=== PATIENT | female | born 1985 | race Caucasian/White ===

== ENCOUNTER 2017-08-16 01:41 | Emergency (ER) | payer MEDICAID ==
--- NOTE | 2017-08-16 02:31 | ER Document Report ---
ED General - General TRAVEL OUTSIDE OF THE [place].S. IN LAST 30 DAYS: No <TRAVIS PERSAUD - Last Filed: 08/16/17 05:19> <MARJORIE ZAMBRANO - Last Filed: 08/16/17 09:09> <MOE AC - Last Filed: 08/16/17 10:30> - General Chief Complaint: Possible Overdose Stated Complaint: ANXIETY Time Seen by Provider: 08/16/17 02:00 Notes: Patient is a 31-year-old female who was sent here by the police because she threatened suicide and then took a bunch gabapentin. She says she is unsure what the dose was, but took approximately 20-30 tablets. He says he only other thing she took with alcohol. She denies taking illegal drugs. She has been depressed because she says her 's been cheating on her. She is a history of depression and used to be on medications for. She said she was was diagnosed as bipolar. She will longer takes medications. She is very tearful on exam and says that she just cannot control her sadness at times and gets like this. (TRAVIS PERSAUD) - Related Data Allergies/Adverse Reactions: morphine [Morphine] Adverse Reaction (Intermediate, Verified 11/14/13 20:48) Hallucinations Past Medical History - Social History Smoking Status: Unknown if Ever Smoked Frequency of alcohol use: Occasional Drug Abuse: None Family History: Reviewed & Not Pertinent Patient has suicidal ideation: Yes Patient has homicidal ideation: No Pulmonary Medical History: Reports: Hx Bronchitis, Hx Pneumonia Denies: Hx Asthma Renal/ Medical History: Denies: Hx Peritoneal Dialysis Past Surgical History: Reports: Hx Section - x2 - Immunizations Hx Diphtheria, Pertussis, Tetanus Vaccination: Yes <TRAVIS PERSAUD - Last Filed: 08/16/17 05:19> Review of Systems <TRAVIS PERSAUD - Last Filed: 08/16/17 05:19> <MARJORIE ZAMBRANO - Last Filed: 08/16/17 09:09> <MOE AC - Last Filed: 08/16/17 10:30> - Review of Systems Notes: My Normal Review Basic REVIEW OF SYSTEMS: CONSTITUTIONAL : Denies fever, chills, or sweats. Denies recent illness. RESPIRATORY: Denies cough, cold, or chest congestion. Denies shortness of breath, difficulty breathing, or wheezing. GASTROINTESTINAL: Denies abdominal pain. Denies nausea, vomiting, or diarrhea. Denies constipation. Last BM: GENITOURINARY: Denies difficulty urinating, painful urination, burning, frequency, or blood in urine. FEMALE GENITOURINARY: Denies vaginal bleeding, abnormal or irregular periods. LMP: MUSCULOSKELETAL: Denies neck or back pain or joint pain or swelling. SKIN: Denies rash or skin lesions. NEUROLOGICAL: Denies altered mental status or loss of consciousness. Denies headache. Denies weakness or paralysis or loss of use of either side. Denies problems with gait or speech. Denies sensory or motor loss. PSYCHIATRIC: Suicide attempt. ALL OTHER SYSTEMS REVIEWED AND NEGATIVE. (TRAVIS PERSAUD) Physical Exam <TRAVIS PERSAUD - Last Filed: 08/16/17 05:19> <MARJORIE ZAMBRANO - Last Filed: 08/16/17 09:09> <MOE AC - Last Filed: 08/16/17 10:30> - Vital signs Vitals: Resp 15 08/16/17 01:52 - Notes Notes: General Appearance: Well nourished, alert, cooperative, no acute distress, no obvious discomfort. Vitals: reviewed, See vital signs table. Head: no swelling or tenderness to the head Eyes: PERRL, EOMI, Conjuctiva clear Mouth: No decreasd moisture Neck: Supple, no neck tenderness, No thyromegaly Lungs: No wheezing, No rales, No rhonci, No accessory muscle use, good air exchange bilaterally. Heart: Normal rate, Regular rythm, No murmur, no rub Abdomen: Normal BS, soft, No rigidity, No abdominal tenderness, No guarding, no rebound, no abdominal masses, no organomegaly Extremities: strength 5/5 in all extremities, good pulses in all extremities, no swelling or tenderness in the extremities, no edema. Skin: warm, dry, appropriate color, no rash Neuro: speech clear, oriented x 3, normal affect, responds appropriately to questions. Anibal: Very tearful on exam. At times appears okay and then suddenly will become very tearful and start crying and very emotionally upset and hard to console. (TRAVIS PERSAUD) Course - Laboratory Result Diagrams: 08/16/17 01:45 08/16/17 01:45 <TRAVIS PERSAUD - Last Filed: 08/16/17 05:19> - Laboratory Result Diagrams: 08/16/17 01:45 08/16/17 01:45 <MARJORIE ZAMBRANO - Last Filed: 08/16/17 09:09> - Laboratory Result Diagrams: 08/16/17 01:45 08/16/17 01:45 <MOE AC - Last Filed: 08/16/17 10:30> - Re-evaluation Re-evalutation: 08/16/17 05:21 At 8 AM patient will be medically stable for psychiatric evaluation for her depression and suicide attempt as long as she continues to be easily arousable and continues to have normal vital signs. Patient's pulse oximetry has remained normal to this point. Heart rate has remained normal. Dictation of this chart was performed using voice recognition software; therefore, there may be some unintended grammatical errors. (TRAVIS PERSAUD) - Vital Signs Vital signs: Temp Pulse Resp BP Pulse Ox 98.7 F 16 112/86 H 98 08/16/17 01:54 08/16/17 09:01 08/16/17 09:01 08/16/17 09:01 - Laboratory Laboratory results interpreted by me: 08/16/17 08/16/17 01:45 07:09 Sodium 149.9 H Chloride 111 H Urine Protein 100 H Urine Blood LARGE H Urine Urobilinogen 2.0 H Salicylates < 1.0 L Acetaminophen < 10 L - EKG Interpretation by Me Additional EKG results interpreted by me: 08/16/17 02:30 EKG is reviewed and interpreted by me. EKG shows sinus rhythm with rate of [address] segment elevation or depression. No ischemic T-wave inversions. TX interval, QRS duration, QTc intervals are within normal range. No old EKG available for comparison. (TRAVIS PERSAUD) Discharge <TRAVIS PERSAUD - Last Filed: 08/16/17 05:19> <MARJORIE ZAMBRANO - Last Filed: 08/16/17 09:09> <MOE AC - Last Filed: 08/16/17 10:30> - Discharge Clinical Impression: Depression Condition: Good Disposition: HOME, SELF-CARE Additional Instructions: You were seen at the Emergency Department and consulted by the Behavioral Health Team for depression and a suicide attempt by overdose, and have now been determined appropriate for discharge. You are being referred to [facility] for ongoing care and treatment of your depression and current situational factors which led to your suicide attempt. A "warm hand-off" at discharge occurred so that an immediate connection to services was made. In addition, you were provided pharmacy discount cards to assist with obtaining medications you are prescribed. Medication Scripts provided: 1. Celexa 20 mg daily 2. Buspar 10 mg at bedtime 3. Buspar 5 mg in the morning DEPRESSION: Your evaluation reveals that you have depression. Symptoms may be vague, and often include disturbance of sleep, fatigue, loss of appetite, and general loss of interest in life. Depression may be a side effect of drugs, or a reaction to a major change in your life, and in many cases have no known cause. If depression is acute, and related to a major loss in your life, you can expect it to clear with time. If you have been depressed a long time, are prone to repeated bouts of depression or low mood, or have been thinking of suicide, get help. Depression can be treated with anti-depressant medication and counseling. Long-term depression will often take a few weeks to clear, even with appropriate medication. Follow-up care is important. SUICIDAL IDEATION: Suicidal ideation is a common medical term for thoughts about suicide, which may be as detailed as a formulated plan, without the suicidal act itself. Although most people who undergo suicidal ideation do not commit suicide, some go on to make suicide attempts. The range of suicidal ideation varies greatly from fleeting to detailed planning, role playing, and unsuccessful attempts. While thoughts about suicide are common, most people do not carry out serious actions to commit suicide. Based upon your evaluation and discussion with you, we do not believe you are currently at risk to act upon your thoughts of suicide. You have agreed to return to the Emergency Department, at any time , if you feel inclined to act upon your suicidal thoughts. FOLLOW-UP CARE: You have been referred to [facility] for follow-up care. If you experience worsening or a significant change in your symptoms, notify the [facility] immediately or return to the Emergency Department at any time for re- evaluation. [facility] [address] [place] [address] PH: [phone] [facility] Mobile Crisis- 04/09 Prescriptions: Buspirone HCl [Buspar 5 mg Tablet] 1 tab PO BID #21 tab Citalopram Hydrobromide [Celexa 20 mg Tablet] 20 mg PO DAILY #7 tablet Referrals: AMERICA BOUCHER MD [Primary Care Provider] - Follow up as needed
[2017-08-16 02:37] LABS: ABSOLUTE BASOPHILS # (AUTO) 0.1 10^3/uL (0.0-0.2); ABSOLUTE EOSINOPHILS # (AUTO) 0.1 10^3/uL (0.0-0.6); ABSOLUTE MONOCYTES (AUTO) 0.7 10^3/uL (0.1-1.4); ABSOLUTE NEUT (AUTO) 5.1 10^3/uL (1.7-8.2); BASOPHILS % (AUTO) 0.6 % (0-2); EOSINOPHILS % (AUTO) 1.2 % (0-6); HEMATOCRIT 44.9 % (36.0-47.0); HEMOGLOBIN 15.5 g/dL (12.0-15.5); LYMPHOCYTES % (AUTO) 40.1 % (13-45); MEAN CORPUSCULAR HEMOGLOBIN 31.9 pg (27.0-33.4); MEAN CORPUSCULAR HGB CONC 34.6 g/dL (32.0-36.0); MEAN CORPUSCULAR VOLUME 92 fl (80-97); PLATELET COUNT 219 10^3/uL (150-450); RED BLOOD COUNT 4.87 10^6/uL (3.72-5.28); RED CELL DISTRIBUTION WIDTH 12.2 % (11.5-14.0); SEGMENTED NEUTROPHILS % (AUTO) 51.1 % (42-78); TOTAL CELLS COUNTED % (AUTO) 100 %
[2017-08-16 02:46] LABS: ALANINE AMINOTRANSFERASE 19 U/L (9-52); ALBUMIN 4.7 g/dL (3.5-5.0); ALCOHOL 145 mg/dL (NONE DETECTED); ALKALINE PHOSPHATASE 60 U/L (38-126); ANION GAP 17 (5-19); ASPARTATE AMINO TRANSFERASE 26 U/L (14-36); BILIRUBIN,DIRECT 0.4 mg/dL (0.0-0.4); BILIRUBIN,TOTAL 0.4 mg/dL (0.2-1.3); BLOOD UREA NITROGEN 8 mg/dL (7-20); CALCIUM 9.6 mg/dL (8.4-10.2); CARBON DIOXIDE 22 mmol/L (22-30); CHLORIDE 111 mmol/L (98-107); GLUCOSE 92 mg/dL (75-110); POTASSIUM 4.1 mmol/L (3.6-5.0); SODIUM 149.9 mmol/L (137-145); TOTAL PROTEIN 7.7 g/dL (6.3-8.2)
[2017-08-16 02:48] LABS: ACETAMINOPHEN < 10 ug/mL (10-30); SALICYLATE < 1.0 mg/dL (2.0-20.0)
[2017-08-16] MEDS ORDERED: ACETAMINOPHEN 325 MG TABLET PO ONE (06:38)
[2017-08-16] MEDS ORDERED: ONDANSETRON 4 MG TAB.RAPDIS PO ONE (06:38)
--- NOTE | 2017-08-16 07:41 | EKG REPORT ---
SEVERITY:- NORMAL ECG - SINUS RHYTHM : Confirmed by: Stevenson Paul MD 16-Aug-2017 07:40:14
[2017-08-16 07:49] LABS: APPEARANCE,URINE CLOUDY; BILIRUBIN,URINE NEGATIVE (NEGATIVE); COLOR,URINE AMBER; GLUCOSE, URINE NEGATIVE (NEGATIVE); KETONES,URINE NEGATIVE (NEGATIVE); LEUKOCYTE ESTERASE,URINE NEGATIVE (NEGATIVE); NITRITE,URINE NEGATIVE (NEGATIVE); PROTEIN,URINE 100 mg/dL (NEGATIVE); URINE SPECIFIC GRAVITY 1.021
[2017-08-16 08:04] LABS: URINE AMPHETAMINES SCREEN NEGATIVE; URINE BARBITURATES SCREEN NEGATIVE; URINE BENZODIAZEPINES SCREEN NEGATIVE; URINE COCAINE SCREEN NEGATIVE; URINE MARIJUANA (THC) SCREEN UNCONFIRMED POSITIVE; URINE METHADONE SCREEN NEGATIVE; URINE PHENCYCLIDINE SCREEN NEGATIVE
[2017-08-16] MEDS ORDERED: NICOTINE 14 MG/24 HR PATCH.TD24 TD ONE (08:22)
--- NOTE | 2017-08-16 10:13 | PSYCHOLOGICAL NOTE ---
Psych Note - Psych Note Psych Note: Met with Patient who reported she has been struggling with depression for over 5 years. She indicated she found out in May her boyfriend of 11 years has been cheating on her and she has been unable to manage her depression around this issue. She reported her boyfriend started counseling, however, he stopped going approximately 3 weeks ago. She indicated she was not able to go to counseling secondary to finances, ut reported she feels she really needs to talk with someone regarding her feelings. She stated she began to drink more heavily in May, now drinking at least a 6-pack of [place] Light a night to help her to "feel better" about her emotions. She reported she is unsure whether her boyfriend has stopped his extra-curricular activities. Patient stated she and her boyfriend have 3 children, ages 14, 10 and 8, together and they were in bed at the time of the incident last evening. Patient indicated last evening she and her boyfriend started arguing and she had already been drinking, and when she "hits my 4th beer, all my emotions come out." She stated, " I just wanted to feel better" and it was at this pint she began taking her old prescription of Gabapentin. She indicated she was not sure of her intent except to make the pain go away. She denied any previous suicide attempts or inpatient psychiatric hospitalizations. She reported going to [facility] approximately 5 years ago where she was diagnosed with Bipolar Disorder and put on Zoloft and Gabapentin. She reported the medications were not helpful and she stopped taking taking them after a few months. She also reported she did not feel as though she had bipolar disorder, rather she struggled with depression and the symptoms associated it. Patient reported she was open to medications and therapy if it was something and with someone she she could afford. Discussed with Patient services that were considered "State Funded" and also Mobile Crisis services available to her. Also discussed the possibility of a "warm hand-off to [facility] at discharge in an effort to get services started immediately without a gap. She was very excited about this option. Patient was alert and oriented to person, place, time, and circumstance. Mood was labile but mostly crying and sad. Affect was mood congruent. She denied current suicidal / homicidal ideation, intent, or plan. She denied auditory/ visual hallucinations, and there was no evidence of delusions. Thought processes were logical, linear, and rational. Conversational speech was within normal limits for rate, tone, and prosody. Intellectual abilities were estimated within the average range. Eye contact was well maintained. Attention and concentration was within normal limits. Insight, judgment, and impulse control were fair. Medication Recommendations from psychiatric contract provider: 1. Celexa 20 mg daily 2. Buspar 10 mg at bedtime 3. Buspar 5 mg in the morning Impression / Plan: Recommend rescind of IVC. Patient is cleared from acute psychiatric services. She denied suicidal ideation, intent or plan. She has no previous suicide attempts and is interested in outpatient counseling and medications. She was agreeable to a warm hand off with [facility] to begin outpatient treatment.ED Physician in agreement with recommendation and disposition.
--- NOTE | 2017-08-16 10:21 | ER Document Report ---
Doctor's Note Notes: 08/16/17 10:20 Rounds: Chart reviewed and patient interviewed. Patient says she feels better this morning. Still feels depressed and is somewhat tearful during my discussions with her. Lab studies showed alcohol level of 145. Drug screen positive for marijuana. Vital signs are all normal. Patient appears to be medically stable for transfer or discharge. Jaci Ordaz MD
[2017-08-16 10:30] VITALS: BP 103/63
== END 2017-08-16 10:30 | disposition home or self-care (01) ==
LOC: ER 01:41
DX: F32.9 Major depressive disorder, single episode, unspecified (principal); T42.6X2A Poisoning by other antiepileptic and sedative-hypnotic drugs, intentional self-harm, initial encounter; Y92.9 Unspecified place or not applicable
CPT/HCPCS: 93005; 99285; 36415; 80307 ×4; 84703; 85025; 80053; 81001; 93010; J3490 ×2; S0119

== ENCOUNTER 2017-12-19 18:04 | Emergency (ER) | payer SELFPAY ==
[2017-12-19] MEDS ORDERED: DIAZEPAM INJ 10 MG/2 ML DISP.SYRIN IV ONE (18:22)
[2017-12-19] MEDS ORDERED: PROCHLORPERAZINE EDISYLATE INJ 10 MG/2 ML VIAL IV ONE (18:23)
[2017-12-19] MEDS ORDERED: NORMAL SALINE 1000 ML 1,000 ML IV ONE (18:25)
--- NOTE | 2017-12-19 18:25 | ER Document Report ---
ED Medical Screen (RME) - General Chief Complaint: Dizziness Stated Complaint: DIZZY, NAUSEA, FATIGUE Time Seen by Provider: 12/19/17 18:21 Notes: 32 years old female with a history of psychiatric disorder, bipolar, and taking multiple medication including recently started on lamotrigine, developed sudden onset of severe dizziness spinning sensation just prior to arrival. Associated with nausea. No headache no nuchal rigidity, denies any focal weakness numbness tingling sensation. On examination-severe lateral nystagmus noted, with unstable eye on both sides No focal neurological deficit TRAVEL OUTSIDE OF THE [place] IN LAST 30 DAYS: No - Related Data Allergies/Adverse Reactions: morphine [Morphine] Adverse Reaction (Intermediate, Verified 12/19/17 18:05) Hallucinations Past Medical History Pulmonary Medical History: Reports: Hx Bronchitis, Hx Pneumonia Denies: Hx Asthma Renal/ Medical History: Denies: Hx Peritoneal Dialysis Past Surgical History: Reports: Hx Section - x2 - Immunizations Hx Diphtheria, Pertussis, Tetanus Vaccination: Yes Physical Exam - Vital signs Vitals: Temp Pulse Resp BP Pulse Ox 97.5 F 73 24 H 132/86 H 98 12/19/17 18:10 12/19/17 18:10 12/19/17 18:10 12/19/17 18:10 12/19/17 18:10 Course - Vital Signs Vital signs: Temp Pulse Resp BP Pulse Ox 97.5 F 73 24 H 132/86 H 98 12/19/17 18:10 12/19/17 18:10 12/19/17 18:10 12/19/17 18:10 12/19/17 18:10 Doctor's Discharge - Discharge Referrals: AMERICA BOUCHER MD [Primary Care Provider] - Follow up as needed
[2017-12-19 18:51] LABS: ABSOLUTE EOSINOPHILS # (AUTO) 0.1 10^3/uL (0.0-0.6); ABSOLUTE LYMPHOCYTES (AUTO) 2.6 10^3/uL (0.5-4.7); ABSOLUTE MONOCYTES (AUTO) 0.5 10^3/uL (0.1-1.4); ABSOLUTE NEUT (AUTO) 5.5 10^3/uL (1.7-8.2); BASOPHILS % (AUTO) 0.4 % (0-2); EOSINOPHILS % (AUTO) 0.8 % (0-6); HEMATOCRIT 42.6 % (36.0-47.0); HEMOGLOBIN 15.1 g/dL (12.0-15.5); MEAN CORPUSCULAR HEMOGLOBIN 32.1 pg (27.0-33.4); MEAN CORPUSCULAR HGB CONC 35.5 g/dL (32.0-36.0); MEAN CORPUSCULAR VOLUME 90 fl (80-97); MONOCYTES % (AUTO) 5.8 % (3-13); PLATELET COUNT 200 10^3/uL (150-450); RED BLOOD COUNT 4.72 10^6/uL (3.72-5.28); RED CELL DISTRIBUTION WIDTH 12.4 % (11.5-14.0); TOTAL CELLS COUNTED % (AUTO) 100 %; WHITE BLOOD COUNT 8.8 10^3/uL (4.0-10.5)
[2017-12-19 19:07] LABS: ALANINE AMINOTRANSFERASE 23 U/L (9-52); ALBUMIN 4.9 g/dL (3.5-5.0); ALKALINE PHOSPHATASE 64 U/L (38-126); ANION GAP 14 (5-19); ASPARTATE AMINO TRANSFERASE 28 U/L (14-36); BILIRUBIN,DIRECT 0.2 mg/dL (0.0-0.4); BILIRUBIN,TOTAL 0.6 mg/dL (0.2-1.3); BLOOD UREA NITROGEN 9 mg/dL (7-20); CALCIUM 10.2 mg/dL (8.4-10.2); CARBON DIOXIDE 26 mmol/L (22-30); CHLORIDE 103 mmol/L (98-107); GLUCOSE 90 mg/dL (75-110); POTASSIUM 3.9 mmol/L (3.6-5.0); TOTAL PROTEIN 7.9 g/dL (6.3-8.2)
--- NOTE | 2017-12-19 19:08 | ER Document Report ---
ED General - General Chief Complaint: Dizziness Stated Complaint: DIZZY, NAUSEA, FATIGUE Time Seen by Provider: 12/19/17 18:21 Notes: Patient is a 32-year-old female that presents to the emergency department for chief complaint of dizziness and vertigo. Patient states that this started rather rapidly this morning around 11:00, had associated nausea and vomiting. She had some mild nausea yesterday but no vomiting. She denies any associated fever, headache, lightheadedness, chest pain, shortness of breath, palpitations , abdominal pain, dysuria or hematuria. Denies prior history of vertigo, she states she is felt dizzy before but nothing like this. Upon my evaluation, the patient had artery received medications from the triage provider, and stated that her symptoms are completely resolved at this time, and she was feeling quite well. Past Medical History: Denies chronic medical conditions Past Surgical History: Tubal ligation Social History: Admits to smoking cigarettes, and occasional alcohol use, and occasional marijuana use Family History: Reviewed and noncontributory for presenting illness Allergies: Reviewed, see documented allergy list. REVIEW OF SYSTEMS: Other than noted above, the 12 point review of systems was reviewed with the patient and were negative, all pertinent findings are included in the HPI. PHYSICAL EXAMINATION: Vital signs reviewed, nursing noted reviewed. GENERAL: Well-appearing, well-nourished and in no acute distress. HEAD: Atraumatic, normocephalic. EYES: Eyes appear normal, extraocular movements intact, sclera anicteric, conjunctiva are normal. ENT: nares patent, oropharynx clear without exudates. Moist mucous membranes. NECK: Normal range of motion, supple without lymphadenopathy LUNGS: Breath sounds clear to auscultation bilaterally and equal. No wheezes rales or rhonchi. HEART: Regular rate and rhythm without murmurs ABDOMEN: Soft, nontender, normoactive bowel sounds. No rebound, guarding, or rigidity. No masses appreciated. EXTREMITIES: Nontender, good range of motion, no pitting or edema. NEUROLOGICAL: No focal neurological deficits. Moves all extremities spontaneously Motor and sensory grossly intact on exam. PSYCH: Normal mood, normal affect. SKIN: Warm, Dry, normal turgor, no rashes or lesions noted on exposed skin TRAVEL OUTSIDE OF THE [place] IN LAST 30 DAYS: No - Related Data Allergies/Adverse Reactions: morphine [Morphine] Adverse Reaction (Intermediate, Verified 12/19/17 18:05) Hallucinations Past Medical History - Social History Smoking Status: Current Every Day Smoker Frequency of alcohol use: Occasional Drug Abuse: Marijuana Family History: Reviewed & Not Pertinent Patient has suicidal ideation: No Patient has homicidal ideation: No Pulmonary Medical History: Reports: Hx Bronchitis, Hx Pneumonia Denies: Hx Asthma Renal/ Medical History: Denies: Hx Peritoneal Dialysis Psychiatric Medical History: Reports: Hx Depression Past Surgical History: Reports: Hx Section - x2 - Immunizations Hx Diphtheria, Pertussis, Tetanus Vaccination: Yes Physical Exam - Vital signs Vitals: Temp Pulse Resp BP Pulse Ox 97.5 F 73 24 H 132/86 H 98 12/19/17 18:10 12/19/17 18:10 12/19/17 18:10 12/19/17 18:10 12/19/17 18:10 Course - Re-evaluation Re-evalutation: Patient seen and examined vital signs reviewed. Laboratory data and imaging were ordered as appropriate for the patient's presenting symptoms and complaint, with consideration of any critical or life threatening conditions that may be associated with their obtained history and exam as noted above. Per triage provider's notes, the patient did have significant nystagmus, on their exam, however upon my evaluation the patient had already received medications and was feeling quite well. Patient was treated with Phenergan, Valium, and IV fluids Results were reviewed when available and demonstrated unremarkable blood work, negative CT imaging of the head, hCG was ordered and pending, however patient states he had a tubal ligation and her had vasectomy, highly unlikely patient's The patient was re-evaluated and was much improved, symptoms are completely resolved Evaluation was most consistent with benign paroxysmal positional vertigo, patient had rapid onset of symptoms, nausea vomiting, rapidly resolved with medications. Results were discussed with the patient at this point, after careful consideration I feel that that patient can be discharged from the emergency department, the patient was educated treatments and reasons to return to the emergency department based on their presumed diagnosis as noted above, they were advised to followup with a primary care physician in 2-3 days. Patient was agreeable to plan of care. *Note is created using voice recognition software and may contain spelling, syntax or grammatical errors. Laboratory 12/19/17 12/19/17 18:38 18:38 WBC 8.8 RBC 4.72 Hgb 15.1 Hct 42.6 MCV 90 MCH 32.1 MCHC 35.5 RDW 12.4 Plt Count 200 Seg Neutrophils % 63.0 Lymphocytes % 30.0 Monocytes % 5.8 Eosinophils % 0.8 Basophils % 0.4 Absolute Neutrophils 5.5 Absolute Lymphocytes 2.6 Absolute Monocytes 0.5 Absolute Eosinophils 0.1 Absolute Basophils 0.0 Sodium 143.0 Potassium 3.9 Chloride 103 Carbon Dioxide 26 Anion Gap 14 BUN 9 Creatinine 0.80 Est GFR ( Amer) > 60 Est GFR (Non-Af Amer) > 60 Glucose 90 Calcium 10.2 Total Bilirubin 0.6 Direct Bilirubin 0.2 Neonat Total Bilirubin Not Reportable Neonat Direct Bilirubin Not Reportable Neonat Indirect Bili Not Reportable AST 28 ALT 23 Alkaline Phosphatase 64 Total Protein 7.[address] 12/19/17 18:22 IMPRESSION: NORMAL BRAIN CT WITHOUT CONTRAST. EVIDENCE OF ACUTE STROKE: NO. - Vital Signs Vital signs: Temp Pulse Resp BP Pulse Ox 97.8 F 77 16 109/63 96 12/19/17 20:52 12/19/17 20:52 12/19/17 20:52 12/19/17 20:52 12/19/17 20:52 - Laboratory Result Diagrams: 12/19/17 18:38 12/19/17 18:38 Discharge - Discharge Clinical Impression: Vertigo Condition: Stable Disposition: HOME, SELF-CARE Instructions: Meclizine ([facility]), Vertigo ([facility]) Prescriptions: Meclizine HCl [Dramamine Less Drowsy] 25 mg PO TID PRN #15 tablet PRN Reason: Dizziness [facility] - Follow up in 3-5 days
--- NOTE | 2017-12-19 19:10 | RADIOLOGY REPORT (SQ) ---
EXAM DESCRIPTION: CT HEAD WITHOUT COMPLETED DATE/TIME: 12/19/2017 6:58 pm REASON FOR STUDY: Dizziness COMPARISON: 07/23/2014 TECHNIQUE: Axial images acquired through the brain without intravenous contrast. Images reviewed wi th bone, brain and subdural windows. Additional sagittal and coronal reconstructions were generated. Images stored on PACS. All CT scanners at this facility use dose modulation, iterative reconstruction, and/or weight based d osing when appropriate to reduce radiation dose to as low as reasonably achievable (ALARA). [facility]: Dose Right [facility]: CareDose [facility]: Dose Right [facility]: Teradose 4D [facility]: Smart [employer] RADIATION DOSE: CT Rad equipment meets quality standard of care and radiation dose reduction techniq ues were employed. CTDIvol: 53.2 mGy. DLP: 1017 mGy-cm. mGy. LIMITATIONS: None. FINDINGS: VENTRICLES: Normal size and contour. CEREBRUM: No masses. No hemorrhage. No midline shift. No evidence for acute infarction. Normal gra y/white matter differentiation. No areas of low density in the white matter. CEREBELLUM: No masses. No hemorrhage. No alteration of density. No evidence for acute infarction. EXTRAAXIAL SPACES: No fluid collections. No masses. ORBITS AND GLOBE: No intra- or extraconal masses. Normal contour of globe without masses. CALVARIUM: No fracture. PARANASAL SINUSES: No fluid or mucosal thickening. SOFT TISSUES: No mass or hematoma. OTHER: No other significant finding. IMPRESSION: NORMAL BRAIN CT WITHOUT CONTRAST. EVIDENCE OF ACUTE STROKE: NO. COMMENT: Quality ID # [id number]: Final reports with documentation of one or more dose reduction techniques (e.g., Automated exposure control, adjustment of the mA and/or kV according to patient size, use of iterative reconstruction technique) TECHNICAL DOCUMENTATION: JOB ID: [id number] [employer]- All Rights Reserved Reading location - IP/workstation name: [email or web address]
[2017-12-19 20:53] VITALS: BP 109/63
== END 2017-12-19 20:53 | disposition home or self-care (01) ==
LOC: ER 18:04
DX: R42 Dizziness and giddiness (principal); R11.2 Nausea with vomiting, unspecified; F17.210 Nicotine dependence, cigarettes, uncomplicated; F12.10 Cannabis abuse, uncomplicated; Z98.51 Tubal ligation status
CPT/HCPCS: 99284; 96361; 96374; 96375; 36415; 84703; 85025; 80053; 70450; J3360; J0780; J7030

== ENCOUNTER 2018-05-15 07:28 | Emergency (ER) | payer SELFPAY ==
[2018-05-15] MEDS ORDERED: ONDANSETRON HCL INJ/PF 4 MG/2 ML SDV IV ONE (07:40)
[2018-05-15] MEDS ORDERED: RINGERS SOLUTION,LACTATED 1,000 ML IV ONE (07:40)
[2018-05-15] MEDS ORDERED: DIPHENHYDRAMINE HCL 50 MG/ML VIAL IV ONE (08:12)
[2018-05-15] MEDS ORDERED: PROCHLORPERAZINE EDISYLATE INJ 10 MG/2 ML VIAL IV ONE (08:12)
--- NOTE | 2018-05-15 08:18 | ER Document Report ---
ED General - General TRAVEL OUTSIDE OF THE [place] IN LAST 30 DAYS: No <HAYLEE FAJARDO - Last Filed: 05/15/18 09:59> <ROBBIE CORTES Jesusita - Last Filed: 05/15/18 12:50> - General Chief Complaint: Headache Stated Complaint: HEADACHE Time Seen by Provider: 05/15/18 08:06 Primary Care Provider: AMERICA BOUCHER MD [ACTIVE STAFF] - Follow up as needed Notes: Patient is a 32-year-old female who presents to the emergency department with a chief complaint of a headache. Her headache started last night. She states that the headache is on the right side of her head and it is radiating all over her head. States that she also has pain in her neck due to the headache. She also has some associated nausea and vomiting. Denies any fever. She received Zofran from triage and states that she does feel somewhat better. She is also receiving IV fluids. She has a history of migraines in the past, with relief from migraine cocktails. Denies any numbness, tingling, weakness, or loss of sensation. (HAYLEE FAJARDO) - Related Data Allergies/Adverse Reactions: morphine [Morphine] Adverse Reaction (Intermediate, Verified 05/15/18 07:29) Hallucinations Past Medical History - Social History Smoking Status: Current Every Day Smoker Family History: Reviewed & Not Pertinent Pulmonary Medical History: Reports: Hx Bronchitis, Hx Pneumonia Denies: Hx Asthma Renal/ Medical History: Denies: Hx Peritoneal Dialysis Psychiatric Medical History: Reports: Hx Depression Past Surgical History: Reports: Hx Section - x2 - Immunizations Hx Diphtheria, Pertussis, Tetanus Vaccination: Yes <HAYLEE FAJARDO - Last Filed: 05/15/18 09:59> Review of Systems <HAYLEE FAJARDO - Last Filed: 05/15/18 09:59> - Review of Systems Notes: REVIEW OF SYSTEMS: CONSTITUTIONAL : Denies recent illness. Denies recent unintentional weight loss. Denies fever, chills, or sweats. EENT: Denies eye, ear, throat, or mouth pain, discharge, or symptoms. Denies nasal or sinus congestion. CARDIOVASCULAR: Denies chest pain. RESPIRATORY: Denies shortness of breath, cough, congestion, difficulty breathing, or wheezing. GASTROINTESTINAL: Denies nausea, vomiting, and diarrhea. Denies abdominal pain. Denies constipation. GENITOURINARY: Denies difficulty urinating, burning, blood in urine, urgency or frequency. MUSCULOSKELETAL: Denies neck and back pain. Denies joint pain or swelling. SKIN: Denies rash, itchiness, or lesions HEMATOLOGIC : Denies easy bruising or bleeding. LYMPHATIC: Denies swollen, painful, enlarged glands. NEUROLOGICAL: See HPI PSYCHIATRIC: Denies stress, anxiety, alteration in sleep patterns, or depression. All other systems reviewed and negative. (HAYLEE FAJARDO) Physical Exam <HAYLEE FAJARDO - Last Filed: 05/15/18 09:59> - Vital signs Vitals: Temp Pulse BP Pulse Ox 97.9 F 59 L 146/85 H 99 05/15/18 07:30 05/15/18 07:30 05/15/18 07:30 05/15/18 07:30 - Notes Notes: PHYSICAL EXAMINATION: GENERAL: Appears well, healthy, well-nourished, no acute distress. HEAD: Normocephalic, atraumatic. EYES: PERRL, conjunctiva normal, all extraocular movements intact, sclera nonicteric ENT: Moist mucous membranes. NECK: Supple, no noticeable swelling, redness, rash. Normal range of motion. LUNGS: Equal breath sounds bilaterally and clear to auscultation. No wheezes rales or rhonchi. CARDIOVASCULAR: S1-S2, regular rate, regular rhythm. Radial pulses 2+, normal. ABDOMEN: Normoactive bowel sounds. Soft, nontender, no guarding, no rebound tenderness, and no masses palpated. EXTREMITIES: Normal strength and range of motion, no pitting or edema. No cyanosis. NEUROLOGICAL: Moves all extremities upon command. Strength 5/5 in all extremities. PSYCH: Normal mood, normal affect. SKIN: Warm, dry. No rash, lesions, ulcerations noted. Normal skin turgor. (HAYLEE FAJARDO) Course - Laboratory Result Diagrams: 05/15/18 07:59 05/15/18 07:59 <HAYLEE FAJARDO - Last Filed: 05/15/18 09:59> - Laboratory Result Diagrams: 05/15/18 07:59 05/15/18 07:59 <ROBBIE CORTES - Last Filed: 05/15/18 12:50> - Re-evaluation Re-evalutation: 05/15/18 09:53 Patient states that she has had almost complete resolution of her symptoms. She states that her headache is so much better than it was earlier. I do not s uspect patient has an intracranial bleed, or any life-threatening intracranial etiology at this time. Verbal discharge instructions were given to the patient. They verbalized understanding. They are stable for discharge. (HAYLEE FAJARDO) 05/15/18 12:50 I personally evaluated this patient and agree with [facility] plan of care and disposition. When I saw her she had complete resolution of her headache. She is alert oriented with no focal neurologic deficits. She states she is feeling significantly better and agreed with discharge. (ROBBIE CORTES) - Vital Signs Vital signs: Temp Pulse Resp BP Pulse Ox 97.8 F 59 L 16 100/61 100 05/15/18 10:22 05/15/18 10:22 05/15/18 10:22 05/15/18 10:22 05/15/18 10:22 - Laboratory Laboratory results interpreted by me: 05/15/18 05/15/18 05/15/18 07:59 07:59 08:42 Hgb 15.8 H Glucose 127 H Urine Protein 30 H Urine Blood LARGE H Urine Urobilinogen 2.0 H Discharge <TANAHAYLEE Hernandes - Last Filed: 05/15/18 09:59> <ROBBIE CORTES - Last Filed: 05/15/18 12:50> - Discharge Clinical Impression: Migraine Condition: Stable Disposition: HOME, SELF-CARE Instructions: Antinausea Medication ([facility]), Headache ([facility]) Additional Instructions: You were seen today for a migraine headache. Please follow-up with your primary care doctor regarding today's ED visit. Return to emergency department immediately if you develop a headache that gets to its maximum severity within 20 minutes of onset, you pass out, you develop weakness, numbness, changes in your vision, become unable to keep any fluids down for more than 12 hours, or develop a fever greater than 100.4 degrees Fahrenheit. If you develop a similar migraine headache in the future I recommend that you immediately take 600 mg of ibuprofen or BC powder, 1000 mg of Tylenol, and 50 mg of Benadryl and go to sleep as quickly as possible. This can often prevent your migraine headache from becoming severe. Referrals: AMERICA BOUCHER MD [ACTIVE STAFF] - Follow up as needed
[2018-05-15 08:29] LABS: ABSOLUTE BASOPHILS # (AUTO) 0.1 10^3/uL (0.0-0.2); ABSOLUTE EOSINOPHILS # (AUTO) 0.2 10^3/uL (0.0-0.6); ABSOLUTE LYMPHOCYTES (AUTO) 3.6 10^3/uL (0.5-4.7); ABSOLUTE MONOCYTES (AUTO) 0.5 10^3/uL (0.1-1.4); ABSOLUTE NEUT (AUTO) 4.7 10^3/uL (1.7-8.2); BASOPHILS % (AUTO) 0.6 % (0-2); EOSINOPHILS % (AUTO) 1.9 % (0-6); HEMATOCRIT 45.2 % (36.0-47.0); HEMOGLOBIN 15.8 g/dL (12.0-15.5); LYMPHOCYTES % (AUTO) 40.3 % (13-45); MEAN CORPUSCULAR HEMOGLOBIN 31.8 pg (27.0-33.4); MEAN CORPUSCULAR VOLUME 91 fl (80-97); MONOCYTES % (AUTO) 5.4 % (3-13); PLATELET COUNT 203 10^3/uL (150-450); RED BLOOD COUNT 4.98 10^6/uL (3.72-5.28); RED CELL DISTRIBUTION WIDTH 12.2 % (11.5-14.0); SEGMENTED NEUTROPHILS % (AUTO) 51.8 % (42-78); TOTAL CELLS COUNTED % (AUTO) 100 %
[2018-05-15 09:01] LABS: BLOOD UREA NITROGEN 10 mg/dL (7-20); CALCIUM 10.1 mg/dL (8.4-10.2); CARBON DIOXIDE 27 mmol/L (22-30); CHLORIDE 105 mmol/L (98-107); GLUCOSE 127 mg/dL (75-110); POTASSIUM 4.5 mmol/L (3.6-5.0); SODIUM 141.7 mmol/L (137-145)
[2018-05-15 09:02] LABS: ALANINE AMINOTRANSFERASE 25 U/L (9-52); ALBUMIN 4.4 g/dL (3.5-5.0); ALKALINE PHOSPHATASE 63 U/L (38-126); ANION GAP 10 (5-19); ASPARTATE AMINO TRANSFERASE 26 U/L (14-36); BILIRUBIN,DIRECT 0.3 mg/dL (0.0-0.4); BILIRUBIN,TOTAL 0.4 mg/dL (0.2-1.3); TOTAL PROTEIN 7.5 g/dL (6.3-8.2)
[2018-05-15 09:03] LABS: APPEARANCE,URINE CLOUDY; BILIRUBIN,URINE NEGATIVE (NEGATIVE); GLUCOSE, URINE NEGATIVE (NEGATIVE); KETONES,URINE NEGATIVE (NEGATIVE); LEUKOCYTE ESTERASE,URINE NEGATIVE (NEGATIVE); NITRITE,URINE NEGATIVE (NEGATIVE); PROTEIN,URINE 30 mg/dL (NEGATIVE); URINE SPECIFIC GRAVITY 1.018
[2018-05-15 09:04] LABS: COLOR,URINE DARK YELLOW
[2018-05-15] MEDS ORDERED: ONDANSETRON ODT 4 MG TAB (6 TAB/ER DISP) PO PRN (09:54)
[2018-05-15 10:24] VITALS: BP 100/61
== END 2018-05-15 10:22 | disposition home or self-care (01) ==
LOC: ER 07:28
DX: G43.909 Migraine, unspecified, not intractable, without status migrainosus (principal); M54.2 Cervicalgia; R11.2 Nausea with vomiting, unspecified; F17.200 Nicotine dependence, unspecified, uncomplicated
CPT/HCPCS: 99284; 96361; 96374; 96375; 36415; 85025; 81025; 80053; 81001; J1200; J0780; J2405; J7120